=== PATIENT | male | born 1970 ===

== ENCOUNTER 2017-05-27 11:35 | Emergency (ER) | payer OTHER ==
[~2017-05-27] VITALS: Ht 167.6 cm; Wt 100.0 kg
[2017-05-27 11:38] VITALS: BP 150/84; PULSE 54; RESP 18; TEMP 97.9; O2SAT 97
[2017-05-27] MEDS ORDERED: LISI10TA3 PO (12:00)
[2017-05-27] MEDS ORDERED: LITH300T3 PO (12:10)
[2017-05-27] MEDS ORDERED: TRAM50TA PO (12:10)
[2017-05-27] MEDS ORDERED: ATEN50TA PO (12:10)
[2017-05-27] MEDS ORDERED: SOMA350T PO (12:10)
[2017-05-27] MEDS ORDERED: MOBI15TA PO (12:10)
[2017-05-27] MEDS ORDERED: CETI10CA3 PO (12:10)
[2017-05-27] MEDS ORDERED: ONDANSETRON HCL 4 MG/2 ML VIAL IV PUSH ONE (12:15)
[2017-05-27] MEDS ORDERED: METHOCARBAMOL 500 MG TAB PO ONE (12:15)
[2017-05-27] MEDS ORDERED: MORPHINE SULFATE 4 MG/ML INJ IV PUSH ONE (12:15)
[2017-05-27] MEDS ORDERED: SODIUM CHLOR 0.9% 1000 ML INJ 1,000 ML IV ONE (12:15)
[2017-05-27] MEDS ORDERED: TETANUS/DIPHTHERIA TOXOID ADULT 0.5 ML VIAL IM ONE (12:15)
--- NOTE | 2017-05-27 12:41 | PD ---
HPI Chief Complaint: Bite or Sting Time Seen by Provider: 11:55 Travel History International Travel<30 days: No Contact w/Intl Traveler<30days: No Traveled to known affect area: No History of Present Illness HPI 47-year-old male presents to the emergency room for evaluation of a black spider bite to his right fourth finger. Bite occurred over the dorsal proximal phalanx. Patient states he was reaching for a garbage can when he felt a sharp sting followed by a warm sensation that spread from the site of the bite into his dorsal hand. Patient looked and saw spiderwebs and then a black spider. He immediately washed his hands with antibacterial soap and water. Patient collected and brought the spider to the emergency room. Reports pain is 3/10 at this site. She states the tightness in his hand is the most concerning symptom. He is associated nausea but no vomiting. He denies any muscle spasms, chest pain, shortness of breath, or diaphoresis. Unknown last tetanus. PFSH Past Medical History ?: Not Social History Tobacco Use: No Allergies-Medications (Allergen,Severity, Reaction): Coded Allergies: No Known Allergies (Unverified , 05/27/17) Reported Meds & Prescriptions Reported Meds & Active Scripts Active Ibuprofen 800 Mg Tab 800 Mg PO Q8H PRN Robaxin (Methocarbamol) 750 Mg Tab 750 Mg PO Q8HR Reported Mobic (Meloxicam) 15 Mg Tab 15 Mg PO DAILY Soma (Carisoprodol) 350 Mg Tab 350 Mg PO QID PRN Tramadol (Tramadol HCl) 50 Mg Tab 50 Mg PO DAILY PRN Zyrtec (Cetirizine HCl) 10 Mg Capsule 11 Tab PO DAILY [place] Carbonate 300 Mg Tab 300 Mg PO TID Atenolol 50 Mg Tab 50 Mg PO BID Lisinopril 10 Mg Tab 10 Mg PO DAILY Review of Systems Except as stated in HPI: all other systems reviewed are Neg Physical Exam Narrative GENERAL: Well-nourished, well-developed male in no acute distress. Afebrile. Ambulatory. SKIN: Focused skin assessment warm/dry. No erythema or ecchymosis. No puncture wound noted. No diaphoresis. HEAD: Normocephalic. EYES: No scleral icterus. No injection or drainage. NECK: Supple, trachea midline. No JVD or lymphadenopathy. CARDIOVASCULAR: Regular rate and rhythm without murmurs, gallops, or rubs. RESPIRATORY: Breath sounds equal bilaterally. No accessory muscle use. GASTROINTESTINAL: Abdomen soft, non-tender, nondistended. MUSCULOSKELETAL: No cyanosis. Full range of motion of the hand. 2+ radial pulse. Less than 2 second capillary refill distally. Very mild edema of the right dorsal hand. Data Data Last Documented VS Vital Signs Date Time Temp Pulse Resp B/P Pulse Ox O2 Delivery O2 Flow Rate FiO2 05/27/17 13:38 54 20 135/94 97 Room Air 05/27/17 11:38 97.9 Orders Tetanus/Diphtheria Tox Adult (Tetanus/Di (05/27/17 12:15) Sodium Chlor 0.9% 1000 Ml Inj (Ns 1000 M (05/27/17 12:15) Morphine Inj (Morphine Inj) (05/27/17 12:15) Ondansetron Inj (Zofran Inj) (05/27/17 12:15) Methocarbamol (Robaxin) (05/27/17 12:15) MDM Medical Decision Making Medical Screen Exam Complete: Yes Emergency Medical Condition: Yes Medical Record Reviewed: Yes Differential Diagnosis Spider bite, envenomation, cellulitis Narrative Course 47-year-old male presents to the emergency room for evaluation of a black spider bite to his right fourth finger on the dorsal, proximal phalanx. Bite occurred about 1 hour prior to arrival. Patient brought the spider with him which is a black spider with a red hourglass-shape on its belly. Physical exam reveals no puncture wound, erythema, or targetoid lesions at the site of the bite. The right hand is slightly more edematous than the left. Right upper extremity is neurovascularly intact. Full range of motion, compartments soft, and no diaphoresis noted. Patient reports minimal pain and localized tightening (likely from the edema) with associated nausea. According to [email or web address], patient should be treated symptomatically. I contacted poison control who offers similar recommendations including bolus of fluids and 6 hour observation. IV access was established and patient was given 1 L normal saline , morphine, and Zofran. He was also given oral Robaxin and updated on tetanus. Patient was counseled extensively about the lack of need for antivenom because his symptoms are so mild and the good prognosis of black spider bites. He was observed in the emergency room for 3 hours. He is stable for discharge. Patient was strongly encouraged to return any time within the next 2 -3 days if symptoms become refractory to medication or severely worse. He understands and agrees to plan. Diagnosis Primary Impression: Black spider bite Qualified Code: T63.311A - Black spider bite, accidental or unintentional, initial encounter Referrals: Primary Care Physician Patient Instructions: Black Spider Bite (ED), General Instructions Additional Instructions: Rest and drink plenty of fluids. Take Robaxin as directed, as needed for pain. Take ibuprofen with food as directed, as needed for pain. Apply ice to the affected area for 20 minutes at a time, as needed for pain and swelling. Follow-up with a primary care physician. Return to the emergency room for worsening symptoms. Med/Other Pt SpecificInfo: Prescription(s) given Scripts Ibuprofen 800 Mg Het193 Mg PO Q8H PRN (Pain/Inflammation) #15 TAB Ref 0 Prov:Jefferson Sims MD 05/27/17 Methocarbamol (Robaxin)750 Mg [id number] Mg PO Q8HR #15 TAB Ref 0 Prov:Jefferson Sims MD 05/27/17 Disposition: 01 DISCHARGE HOME Condition: Stable Sarah Dutta May 27, 2017 12:41
[2017-05-27 13:38] VITALS: BP 135/94; PULSE 54; RESP 20; O2SAT 97
[2017-05-27] MEDS ORDERED: IBUP800T23 PO (14:24)
[2017-05-27] MEDS ORDERED: ROBA750T PO (14:24)
== END 2017-05-27 15:16 | disposition home or self-care (01) ==
LOC: PHEFT 11:35
DX: T63.311A Toxic effect of venom of black widow spider, accidental (unintentional), initial encounter (principal); R11.0 Nausea; Z23 Encounter for immunization
CPT/HCPCS: 90471; 90714; 96374; 96375; 99284; J2270; J2405; J7030